=== PATIENT | female | born 1945 | race Caucasian/White ===

== ENCOUNTER 2022-02-10 10:46 | Day surgery (SDC) | payer MEDICARE, OTHER ==
[~2022-02-10] VITALS: Ht 167.6 cm; Wt 106.0 kg
[2022-02-10 11:00] VITALS: BP 141/93
[2022-02-10] MEDS ORDERED: LORazepam 0.5 MG tablet PO PRN (11:00)
[2022-02-10] MEDS ORDERED: diphenhydrAMINE 25mg capsule PO PRN (11:00)
[2022-02-10] MEDS ORDERED: normal saline 1,000 ML IV SCH (11:00)
[2022-02-10] MEDS ORDERED: POTA-192 PO (11:20)
[2022-02-10] MEDS ORDERED: SIMV-42 PO (11:20)
[2022-02-10] MEDS ORDERED: VALS160T30 PO (11:20)
[2022-02-10] MEDS ORDERED: DABI150C PO (11:20)
[2022-02-10] MEDS ORDERED: PANT40TA54 PO (11:20)
[2022-02-10] MEDS ORDERED: FURO40TA4 PO (11:20)
[2022-02-10] MEDS ORDERED: METO-411 PO (11:20)
[2022-02-10] MEDS ORDERED: DILT120T PO (11:20)
[2022-02-10] MEDS ORDERED: MODA200T48 PO (11:22)
[2022-02-10] MEDS ORDERED: CHOL200074 PO (11:29)
[2022-02-10] MEDS ORDERED: CALC-1215 PO (11:29)
[2022-02-10] MEDS ORDERED: GLUC1TAB21 PO (11:29)
[2022-02-10] MEDS ORDERED: Vitamin B12 PO (11:29)
[2022-02-10] MEDS ORDERED: OMEG-79 PO (11:29)
[2022-02-10] MEDS ORDERED: ASCO-139 PO (11:29)
[2022-02-10] MEDS ORDERED: Super B Complex PO (11:29)
[2022-02-10] MEDS ORDERED: fentaNYL/PF 50MCG/1 ML 2ML syringe ONE (12:32)
[2022-02-10] MEDS ORDERED: iohexol 350 MG/ML 50ML vial IV ONE (12:32)
[2022-02-10] MEDS ORDERED: verapamil 2.5 mg/ml inj IV ONE (12:32)
[2022-02-10] MEDS ORDERED: midazolam 1 mg/ML 2ml injection ONE (12:32)
[2022-02-10] MEDS ORDERED: heparin 1,000unit/ml 10ml vial 0 ML ONE (12:32)
[2022-02-10] MEDS ORDERED: nitroGLYCERIN-Tridil 50MG/D5W 0 ML IV ONE (12:33)
[2022-02-10] MEDS ORDERED: iohexol 350MG/ML 100ml bottle IV ONE (12:33)
[2022-02-10] MEDS ORDERED: LIDOCAINE 1% w/preservative (10 MG/ML) inj. 10mL VIAL ONE (12:43)
[2022-02-10 14:32] LABS: ISTAT Hct MIX 39 %PCV (35-48); ISTAT O2 SATURATION MIX VENOUS 69 % (60-80); ISTAT SOURCE VEN
[2022-02-10 15:05] VITALS: BP 105/54
[2022-02-10 15:15] VITALS: BP 113/52
[2022-02-10 15:30] VITALS: BP 108/51
[2022-02-10 15:45] VITALS: BP 108/58
[2022-02-10 16:15] VITALS: BP 112/57
== END 2022-02-10 16:35 | disposition home or self-care (01) ==
LOC: SSTAY O 10:46
PROVIDERS: ATTEND Internal Medicine Interventional Cardiology
DX: R06.02 Shortness of breath (principal); I27.0 Primary pulmonary hypertension; G47.33 Obstructive sleep apnea (adult) (pediatric); I11.0 Hypertensive heart disease with heart failure; I50.9 Heart failure, unspecified; I48.0 Paroxysmal atrial fibrillation; G47.419 Narcolepsy without cataplexy; K21.9 Gastro-esophageal reflux disease without esophagitis; I36.1 Nonrheumatic tricuspid (valve) insufficiency; Z79.899 Other long term (current) drug therapy
CPT/HCPCS: 82803; 85014; 93005; 93451; 99152; 99153; C1751; C1894; J1644; J2250; J3010; J7030; Q0163; A4620; A6258; J3490; Q9967

== ENCOUNTER 2025-05-31 07:54 | Inpatient (IN) | payer MEDICARE, OTHER ==
--- NOTE | 2025-05-22 13:57 | ELECTROCARDIOGRAPH REPORT ---
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 SHERRI Orozco Measurements Intervals [place] Rate: 93 P: 76 IN: 52 QRS: 4 QRSD: 87 T: 266 QT: 268 QTc: 334 Interpretive Statements Sinus rhythm Short IN interval Abnormal R-wave progression, early transition Repol abnrm suggests ischemia, diffuse leads Electronically Signed On 05-22-2025 17:27:[address] SHERRI Orozco Please click the below link to view image of tracing.
--- NOTE | 2025-05-22 14:29 | RADIOLOGY REPORT ---
DI CHEST,TWO VIEWS CLINICAL HISTORY: PREOP COMPARISON: None TECHNIQUE: Frontal and lateral view of the chest was obtained FINDINGS: Lines and Tubes: None Lungs: No focal consolidation. Eventration of bilateral hemidiaphragm. Pleura: No effusion. No pneumothorax. Cardiomediastinal contours:Heart size is within normal limits with mild to moderate atherosclerotic c alcification and uncoiling of the aorta. Bones: No acute osseous abnormality. IMPRESSION: No acute cardiopulmonary disease.
[2025-05-22 14:36] LABS: LEUKOCYTE ESTERASE ,URINE NEGATIVE (Neg); MEAN PLATELET VOLUME 9.2 FL (7.4-10.4); NITRITES, URINE NEGATIVE (Neg); OCCULT BLOOD,URINE NEGATIVE (Neg); PRE OP HEMATOCRIT 43.9 % (35.0-45.0); PRE OP HEMOGLOBIN 14.8 g/dL (12.0-16.0); PRE OP PLATELET COUNT 240 X10'3 (140-440); PRE OP WHITE BLOOD COUNT 8.2 10'3 (4.8-10.8); RED CELL DISTRIBUTION WIDTH 15.2 % (11.5-14.5)
[2025-05-22 14:41] LABS: UA COLLECTION TYPE CLN CATCH MIDSTREAM
[2025-05-22 14:45] LABS: PRE OP INR 1.1 INR; PRE OP PARTIAL THROMB. TIME 27.0 SECONDS (22-32); PRE OP PROTIME 10.9 SECONDS (9.0-12.0)
[2025-05-22 14:46] LABS: CREATININE 0.83 MG/DL (0.40-0.90); PRE OP ALT 39 U/L (30-65); PRE OP ANION GAP 6 (8-16); PRE OP AST 31 U/L (10-37); PRE OP BILIRUB, TOTAL 0.8 MG/DL (0.0-1.0); PRE OP GLUCOSE 110 MG/DL (70-104); PRE OP POTASSIUM 4.1 MMOL/L (3.4-5.1); PRE OP SODIUM 140 MMOL/L (135-145); TOTAL CARBON DIOXIDE 27.5 MMOL/L (24-32); eGFR 66 ML/MIN
[~2025-05-31] VITALS: Ht 167.6 cm; Wt 102.6 kg
[2025-05-31] VITALS (18 sets, daily range): BP systolic 118–149; BP diastolic 68–91; PULSE 78–98; RESP 14–20; TEMP 97.2–98; O2SAT 91–99
[2025-05-31] MEDS: DOCUMENT DATE & TIME OF BETA-BLOCKER PO ONE (05:30)
[2025-05-31] MEDS: ceFAZolin 2gm/dext,iso 50mL 50 ML IV ONE (05:30)
[~2025-05-31 07:54] MED LIST: APIX5TAB3 PO; ASCO-139 PO; ATOR-429 PO; CALC-1215 PO; CHOL200074 PO; CYAN-116 PO; FURO20TA4 PO; GLUC1TAB21 PO; METF-1203 PO; METO100T14 PO; MODA200T48 PO; OMEG-79 PO; PANT40TA54 PO; Super B Complex PO; VALS80TA32 PO; ondansetron/PF 4mg/2ml inj IV PRN
[2025-05-31] MEDS: ringers solution, lacted 1,000 ML IV SCH ×2 (08:50→10:00)
[2025-05-31] MEDS: VANCOMYCIN/H2O 1.5g/300mL PB 300 ML IV ONE (08:51)
[2025-05-31] MEDS ORDERED: labetalol 20mg/4ml (5mg/ml) syringe IV PRN ×2 (10:00→11:20)
[2025-05-31] MEDS ORDERED: morphine 4 MG/ML inj SYRINge IV PRN (10:00)
[2025-05-31] MEDS ORDERED: hydrALAZINE 20mg/ml inj. IV PRN ×2 (10:00→11:20)
[2025-05-31] MEDS ORDERED: ondansetron/PF 4mg/2ml inj IV PRN ×2 (10:00→11:20)
[2025-05-31] MEDS ORDERED: HYDROmorphone/PF 0.2 MG/ML SYRINGE IV PRN ×2 (10:00)
[2025-05-31] MEDS ORDERED: fentaNYL/PF 50MCG/1 ML 2ML syringe ONE (10:23)
[2025-05-31] MEDS ORDERED: propofol inj 20 ML IV ONE (10:25)
[2025-05-31] MEDS ORDERED: rocuronium 10mg/ml inj IV ONE (10:26)
[2025-05-31] MEDS ORDERED: heparin 1,000unit/ml 10ml vial 10 ML ONE (10:34)
[2025-05-31] MEDS ORDERED: potassium Cl 20mEq/100mL bag 100 ML IV PRN (11:20)
[2025-05-31] MEDS ORDERED: potassium Cl 40MEQ/270ML bag 250 ML IV PRN (11:20)
[2025-05-31] MEDS ORDERED: magnesium sulf-water 2g/50mL 50 ML IV PRN (11:20)
[2025-05-31] MEDS ORDERED: ALPRAZolam 0.25mg tablet PO PRN (11:20)
[2025-05-31] MEDS ORDERED: HYDROcodone/acetaminophen 5mg/325mg tablet PO PRN (11:20)
[2025-05-31] MEDS ORDERED: dextrose 50%-water 50ml dispensing syringe IV PRN ×2 (11:20)
[2025-05-31] MEDS ORDERED: potassium CL 10mEq/100ml bag 100 ML IV PRN (11:20)
[2025-05-31] MEDS ORDERED: docusate sod 100mg capsule PO PRN (11:20)
[2025-05-31] MEDS ORDERED: pantoprazole 40mg Tablet.DR PO PRN (11:20)
[2025-05-31] MEDS ORDERED: DEXTROSE 15 GM of carb/4 tabs (each vial/BOTTLE has 4 tablets) PO PRN ×2 (11:20)
[2025-05-31] MEDS ORDERED: glucagon, human recombinant 1mg kit SUBCUT PRN (11:20)
[2025-05-31] MEDS ORDERED: potassium Cl 40MEQ/1/2NS 520ml 520 ML IV PRN (11:20)
[2025-05-31] MEDS ORDERED: magnesium sulf-water 4G/100mL 100 ML IV PRN (11:20)
--- NOTE | 2025-05-31 11:23 | OPERATIVE REPORT ---
Operative Report Providers to CC CC: CHARLES GRANADO MD ~ Date of Procedure: May 31, 2025 Pre-Operative Diagnosis: Atrial Fibrillation with high bleeding risk Post-Operative Diagnosis SAME as PRE-Op Procedure Performed 1. Transseptal Puncture via OMARI guidance 2. Left Atrial Appendogram 3. Left Atrial Appendage closure with 27mm Watchman FLX Pro Pro Device 4. Ultrasound guided access, right Femoral Vein Surgeon: Apple Granado MD Quality Assurance Monitor Body n/a Anesthesiologist: Cristopher Angel Type of Anesthesia: General Findings: Left Atrial appendage amenable to percutaneous closure. Complications None Prosthetics\\Implants used: 27mm Watchman Flx Pro Estimated Blood Loss: Minimal Specimen Removed: None Description of Procedure: The patient was brought to the laboratory technologist in a fasting state. They underwent General anesthesia. Ultrasound was used to guide access to the right femoral vein where two nilesh-cross Perclose devices were placed and upsized to an 8Fr sheath. Heparin was given to maintain an ACT over 250 seconds. An 0.035" wire was advanced into the SVC. The 8Fr sheath was then removed and the 8.5Fr VersaCross Transseptal sheath was advanced into the SVC. The RF wire was then advanced to the tip of the sheath/dilator. Using OMARI guidance, appropriate position of the tip of the sheath was determined and using an energized wire tip, advanced into the left atrium. The sheath and dilator were then advanced over the wire into the left atrium. Over the wire, the Versacross sheath was removed and exchanged for the Watchman Sheath. The wire and dilator were then removed and exchanged for a 5Fr pigtail catheter which was placed into the left atrial appendage and an appendogram performed in the THOMPSON-Caudal position. There, ACT was confirmed to be therapeutic. The Watchman sheath was then advanced into the left atrial appendage over the pigtail catheter. Once appropriate position was determined, the pigtail was removed, the 27mm Watchman FLX device and delivery system were advanced into the tip of the sheath. The delivery system was advanced until an appropriate FLX ball was formed. The guide was then retracted and the Watchman device was unsheathed will full deployment in the appendage. Next, PASS criteria was performed confirming adequate positioning and anchoring(using a tug-test), sizing showing adequate compression, and no significant leak around the device. Another Appendogram was performed confirming placement. The device was then released from the delivery system. The guide and delivery system were removed and the perclose tied as well as the [id number] suture, ensuring adequate hemostasis. Mean LA Presssure: 14mmHg Contrast: 25cc ACT: 256s Device Compression: 29% RESULTS: 1. Successful Left-Atrial Appendage closure with a 31mm Watchman FLX Pro device 2. Right Femoral Vein access, closed with Perclose x 2 and [id number] suture 3. Resume Eliquis 5mg BID x 45days with repeat imaging at that time. If sealed without evidence of device related thrombosis, can stop OAC and start ASA 81mg QD indefinitely, plavix 75mg QD x 6 months. 4. DM: RISS They will be watched in the recovery area until stable, then transferred to the telemetry at that time. APPLE GRANADO MD May 31, 2025 11:23
--- NOTE | 2025-05-31 11:29 | ELECTROCARDIOGRAPH REPORT ---
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 SHERRI Orozco Measurements Intervals [place] Rate: 97 P: 0 GA: 138 QRS: 14 QRSD: 88 T: 68 QT: 373 QTc: 474 Interpretive Statements Sinus rhythm Abnormal R-wave progression, early transition Borderline repolarization abnormality Electronically Signed On 06-01-2025 20:19:[address] SHERRI Orozco Please click the below link to view image of tracing.
[2025-05-31] MEDS: INSULIN LISPRO 100 UNIT/ML INSULN.PEN MULTI-DOSE SQ SCH ×2 (12:00)
[2025-05-31] MEDS: normal saline 1000ml 1,000 ML IV SCH (13:45)
[2025-05-31] MEDS: ceFAZolin 1GM/D5W- ADD-VANTAGE 50 ML IV SCH (16:47)
[2025-05-31] MEDS: sod chloride 0.9% 10ml flush syringe IV SCH (16:47)
[2025-05-31] MEDS: vancomycin/NS 1 GM ADD-VANTAGE 250 ML IV SCH (21:39)
[2025-05-31] MEDS: OMEGA-3/DHA/EPA/FISH OIL 1 EACH CAPSULE.DR PO SCH (21:39)
[2025-05-31] MEDS: potassium Cl 20 mEq SR tablet PO PRN (22:49)
[2025-06-01 02:00] VITALS: BP 131/86; PULSE 103; RESP 18; TEMP 97.9; O2SAT 97
[2025-06-01 06:00] VITALS: BP 130/82; PULSE 103; RESP 19; TEMP 97.4; O2SAT 96
[2025-06-01 06:55] LABS: MEAN PLATELET VOLUME 8.9 FL (7.4-10.4); RED CELL DISTRIBUTION WIDTH 15.0 % (11.5-14.5)
[2025-06-01 07:11] LABS: INR 1.0 INR
[2025-06-01 07:39] LABS: CREATININE 0.62 MG/DL (0.40-0.90); PRO BRAIN NATRIURETIC PEPTIDE 1434 PG/ML (0-450); TOTAL CARBON DIOXIDE 28.6 MMOL/L (24-32); eCRCL 65 ML/MIN; eGFR > 90 ML/MIN
[2025-06-01 08:00] VITALS: RESP 18; O2SAT 97
--- NOTE | 2025-06-01 08:03 | ELECTROCARDIOGRAPH REPORT ---
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 SHERRI Orozco Measurements Intervals [place] Rate: 104 P: 68 VT: 151 QRS: 7 QRSD: 91 T: 23 QT: 378 QTc: 498 Interpretive Statements Sinus tachycardia Abnormal R-wave progression, early transition Borderline repolarization abnormality Borderline prolonged QT interval Electronically Signed On 06-01-2025 20:21:[address] SHERRI Orozco Please click the below link to view image of tracing.
--- NOTE | 2025-06-01 08:27 | RADIOLOGY REPORT ---
CHEST RADIOGRAPH Indication: s/p Watchman Technique: Single frontal view of the chest was obtained Comparison: DI CHEST TWO VIEWS on DOS: 05/22/25 FINDINGS: Lines and Tubes: None Lungs: No focal consolidation. Pleura: No effusion. No pneumothorax. Cardiomediastinal contours: Unremarkable Bones: No acute osseous abnormality. IMPRESSION: 1. No acute cardiopulmonary disease.
[2025-06-01] MEDS: cholecalciferol (vitamin D3) 1,000 unit (25mcg) tablet PO SCH (08:44)
[2025-06-01] MEDS: calcium carbonate/vitamin D3 tablet PO SCH (08:45)
[2025-06-01] MEDS: cyanocobalamin 500mcg tablet PO SCH (08:45)
[2025-06-01] MEDS: pantoprazole 40mg Tablet.DR PO SCH (08:45)
--- NOTE | 2025-06-01 09:23 | CARDIOLOGY REPORT ---
APPROVED REPORT EXAM: Focused, limited intraprocedural transesophageal 2D, spectral and color flow Doppler echocardio gram during WATCHMAN deployment. 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 Overall systolic function appears normal. LVEF is 55-60%. RIGHT VENTRICLE RV appears mildly dilated with normal contractility. ATRIA LA appears severely dilated. Broccoli sock shaped appendage without thrombus detected, although thick smoke/pre-thrombotic appearance detected throughout. Left upper pulmonary vein identified. Intact in teratrial septum. Width / length averages are: 0degr - 22 x 27 mm; 45degr - 15 x 24 mm; 90degr - 17 x 26 mm; 135degr 16 x 25 mm. Loop 27: Septal tenting visualized with RF atrial septal puncture perfor med. Loop 29: Wire in LA. Pigtail advanced to tip of appendage. LA pressure is measured at: 14 mmHG. Loop 30: Appendagram performed. Loop 32: Flex ball deployed. 27 mm Watchman FLX device, PASS criteri a attempted, successfully. Loop 34: Successful "TUG" test performed. PASS reassessed. Optimal pernell naseem obtained - shoulder to shoulder measurement is: 19.0 mm. Loop : Device released. Patent interatr ial septum with small residual left to right shunt (s/p transseptal puncture). Successfully occluded left atrial appendage with Watchman device well positioned without thrombus. No residual flow around device detected. No pericardial effusion post-implant. PERICARDIUM There is no pericardial effusion, anterior epicardial pad present. CONCLUSION LV appears normal in size and thickness. Overall systolic function appears normal. LVEF is 55-60%. RV appears mildly dilated with normal contractility. LA appears severely dilated. Broccoli sock shaped appendage without thrombus detected, although thick smoke/pre-thrombotic appearance detected througho ut. Left upper pulmonary vein identified. Intact interatrial septum. Width / length averages are: 0de gr - 22 x 27 mm; 45degr - 15 x 24 mm; 90degr - 17 x 26 mm; 135degr 16 x 25 mm. Loop 27: Septal tenti ng visualized with RF atrial septal puncture performed. Loop 29: Wire in LA. Pigtail advanced to tip of appendage. LA pressure is measured at: 14 mmHG. Loop 30: Appendagram performed. Loop 32: Flex bal l deployed. 27 mm Watchman FLX device, PASS criteria attempted, successfully. Loop 34: Successful "TU G" test performed. PASS reassessed. Optimal compression obtained - shoulder to shoulder measurement i s: 19.0 mm. Loop : Device released. Patent interatrial septum with small residual left to right shunt (s/p transseptal puncture). Successfully occluded left atrial appendage with Watchman device well po sitioned without thrombus. No residual flow around device detected. No pericardial effusion post-impl ant. There is no pericardial effusion, anterior epicardial pad present. Conclusion LV appears normal in size and thickness. Overall systolic function appears normal. LVEF is 55-60%. RV appears mildly dilated with normal contractility. LA appears severely dilated. Broccoli sock shaped appendage without thrombus detected, although thick smoke/pre-thrombotic appearance detected throughout. Left upper pulmonary vein identified. Intact in teratrial septum. Width / length averages are: 0degr - 22 x 27 mm; 45degr - 15 x 24 mm; 90degr - 17 x 26 mm; 135degr 16 x 25 mm. Loop 27: Septal tenting visualized with RF atrial septal puncture pe rformed. Loop 29: Wire in LA. Pigtail advanced to tip of appendage. LA pressure is measured at: 14 mmHG. Loop 30: Appendagram performed. Loop 32: Flex ball deployed. 27 mm Watchman FLX device, PA SS criteria attempted, successfully. Loop 34: Successful "TUG" test performed. PASS reassessed. Optim al compression obtained - shoulder to shoulder measurement is: 19.0 mm. Loop : Device released. Pat ent interatrial septum with small residual left to right shunt (s/p transseptal puncture). Successfu lly occluded left atrial appendage with Watchman device well positioned without thrombus. No residua l flow around device detected. No pericardial effusion post-implant. There is no pericardial effusion, anterior epicardial pad present.
[2025-06-01 11:00] VITALS: BP 132/72; PULSE 105; RESP 19; TEMP 97.5; O2SAT 95
[2025-06-01] MEDS: modafinil 100mg tablet PO SCH (12:00)
--- NOTE | 2025-06-01 17:01 | DISCHARGE SUMMARY ---
Discharge Summary Providers to CC CC: CHARLES ALEJANDRO MD ~ Discharge Summary Admission Diagnosis: Atrial Fibrillation with high bleeding risk Hospital Course DATE OF ADMISSION: 05/31/2025 DATE OF DISCHARGE: 06/01/2025 Discharge Diagnosis\Comment: Status post Left atrial appendage closure Operations\Procedures: 1. Transseptal Puncture via OMARI guidance 2. Left Atrial Appendogram 3. Left Atrial Appendage closure with 27mm Watchman FLX Pro Pro Device 4. Ultrasound guided access, right Femoral Vein Consultants: None Complications: None Condition on DC: Stable Continued Medications: Apixaban (Eliquis) 5 Mg Tablet 1 TAB PO Q12H for 30 Days, #60 TAB 0 Refills Ascorbic Acid (Vitamin C) 1,000 Mg Tablet 1 TAB PO DAILY, TAB 0 Refills DIRECTED Atorvastatin Calcium* (Lipitor*) 80 Mg Tablet 1 TAB PO DAILY for 30 Days, #30 TAB Calcium Carbonate/Vitamin D3 (Calcium + D 600 Mg Tablet) 1 Each Tablet 1 EACH PO DAILY, TAB Cholecalciferol (Vitamin D3) (Vitamin D3) 50 Mcg Capsule 2 CAP PO DAILY, CAP 0 Refills Cyanocobalamin (Vitamin B-12) (Vitamin B12) 1,000 Mcg Tablet 1 TAB PO DAILY Furosemide (Furosemide) 20 Mg Tablet 1 TAB PO DAILY for 30 Days, #30 TAB 0 Refills Gluc Zhu/Chondro Zhu A/Vit C/Mn (Glucosamine Chondroitin Tab) 1 Each Tablet 1 EACH PO DAILY, TAB Metformin HCl (Metformin HCl) 500 Mg Tablet 1 TAB PO Q12H for 30 Days, #60 TAB Metoprolol Tartrate (Metoprolol Tartrate) 100 Mg Tablet 1 TAB PO Q12H for 30 Days, #60 TAB 0 Refills Modafinil (Modafinil) 200 Mg Tablet 1.5 TAB PO DAILY [place]-3 Fatty Acids/Fish Oil (Fish Oil 1,000 Mg Softgel) 1 Each Capsule 1 CAP PO BID, CAP 0 Refills Pantoprazole Sodium (Pantoprazole Sodium) 40 Mg Tablet.dr 1 TAB PO DAILY [Super B Complex] () 1 TAB PO DAILY Valsartan (Valsartan) 80 Mg Tablet 1 TAB PO DAILY for 30 Days, #30 TAB 0 Refills Discharge Summary: 80yo woman with HTN, HLD, DM, Atrial Fibrillation and high bleeding risk admitted status post left atrial occlusion with 27mm Watchman Flx Pro. Did well overnight without issues. --Resume Eliquis 5mg BID x 45days with repeat imaging at that time. If sealed without evidence of device related thrombosis, can stop OAC and start ASA 81mg QD indefinitely, plavix 75mg QD x 6 months.--Cont Eliquis 5mg BID x 45days with repeat imaging at that time. *Problems/Diagnosis: (1) Atrial fibrillation Total Time Spent on D/C: Up to 30 Minutes Counseling Services Smoking & Tobacco Cessation: N/A APPLE ALEJANDRO MD Jun 01, 2025 17:01
--- NOTE | 2025-06-01 19:03 | CARDIOLOGY REPORT ---
APPROVED REPORT EXAM: Limited 2D, Doppler, and color-flow Echocardiogram. Patient Location: [facility] Heart Rate: 102 bpm Rhythm: Atrial Fibrillation Indications One day Watchman FLX Closure Device follow up 27 mm Watchman FLX Closure Device Voice Over Announcer is Bridgett Granado MD Previous echo05/31/2025 [facility] EF 55-60% ; Intact interatrial septum. LEFT VENTRICLE Normal LV size and wall thickness. Overall systolic function appears normal. LVEF is 55-60%. RIGHT VENTRICLE RV is normal size and function. ATRIA LA is sev dilated. Intact interatrial septum with small L to R shunt s/p transseptal puncture by colo r and spectral Doppler. MITRAL VALVE The mitral valve is normal in structure. Mild regurgitation. TRICUSPID VALVE TV appears structurally normal with mild regurgitation. GREAT VESSELS The IVC is normal in size and collapses >50% with inspiration. PERICARDIUM Normal pericardium. No effusion. Other Information Study Quality: Adequate Conclusion Normal LV size and wall thickness. Overall systolic function appears normal. LVEF is 55-60%. RV is normal size and function. LA is severely dilated. Intact interatrial septum with small L to R shunt s/p transseptal puncture b y color and spectral Doppler. The mitral valve is normal in structure. Mild regurgitation. TV appears structurally normal with mild regurgitation. Normal pericardium. No effusion.
== END 2025-06-01 15:46 | disposition home or self-care (01) | DRG 274 ==
LOC: PAS IN 07:54 → PCU 3S 12:42
PROVIDERS: ADMIT Student in an Organized Health Care Education/Training Program; ATTEND Student in an Organized Health Care Education/Training Program
PROC: B24BZZ4 Ultrasonography of Heart with Aorta, Transesophageal (ICD-10-PCS; 2025-05-31)
PROC: 02L73DK Occlusion of Left Atrial Appendage with Intraluminal Device, Percutaneous Approach (ICD-10-PCS; principal; 2025-05-31 10:18)
DX: I48.91 Unspecified atrial fibrillation (principal); Z00.6 Encounter for examination for normal comparison and control in clinical research program; Z79.01 Long term (current) use of anticoagulants; Z79.899 Other long term (current) drug therapy; Z79.84 Long term (current) use of oral hypoglycemic drugs
CPT/HCPCS: 33340; 36415; 71045; 71046; 76937; 80053; 81003; 82948; 83036; 83735; 83880; 85025; 85347; 85610; 85730; 86885; 86900; 86901; 86920; 87081; 93005; 93308; 93312; 93325; A4615; A4618; A6258; A6449; C1760; C1889; C1893; C1894; G0378; J0690; J1644; J1815; J2704; J3010; J3373; J3375; J3490; J7030; J7040; J7120; Q9967

== ENCOUNTER 2025-07-17 13:58 | Outpatient (CLI) | payer MEDICARE, OTHER ==
[~2025-07-17 13:58] MED LIST changes: -ondansetron/PF 4mg/2ml inj IV PRN
--- NOTE | 2025-07-17 16:21 | RADIOLOGY REPORT ---
CLINICAL HISTORY: CEREBRAL INFARCTION, UNSPECIFIED TECHNIQUE: Routine multiplanar imaging of the brain was performed without gadolinium contrast. COMPARISON: None FINDINGS: There is no abnormal restricted diffusion to suggest acute infarction. There is mild brain volume loss. Scattered T2 hyperintense foci within the white matter both cerebral hemispheres is most compatible with a mild burden of nonspecific chronic small vessel ischemic change. 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 There is a small old right parietal lobe infarct. There is no evidence for acute ischemic changes, mass, mass effect, or extra- axial fluid collection. There is no hydrocephalus or midline shift. The cerebral sulci and subarachnoid cisterns are not effaced. The imaged paranasal sinuses are clear. There has been bilateral cataract extraction. The midline structures, including the corpus callosum, are unremarkable. The intracranial flow voids are maintained. IMPRESSION: No acute intracranial abnormality seen. No evidence for acute infarct. Mild brain volume loss. Mild chronic small vessel ischemic change. 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 Bilateral cataract extraction.
== END 2025-07-17 23:59 | disposition home or self-care (01) ==
LOC: MRI 13:58
PROVIDERS: ATTEND General Practice
DX: I67.82 Cerebral ischemia (principal); I63.9 Cerebral infarction, unspecified
CPT/HCPCS: 70551

== ENCOUNTER 2025-07-19 06:57 | Day surgery (SDC) | payer MEDICARE, OTHER ==
[~2025-07-19] VITALS: Ht 167.6 cm; Wt 100.2 kg
[2025-07-19] MEDS ORDERED: fentaNYL/PF 50MCG/1 ML 2ML syringe IV ONE (07:40)
[2025-07-19] MEDS ORDERED: MIDAZolam 1mg/ml 10ml vial IV ONE (07:40)
[2025-07-19 07:42] VITALS: BP 125/84; PULSE 91; RESP 16; TEMP 97.8; O2SAT 95
[2025-07-19 08:18] LABS: MEAN PLATELET VOLUME 8.8 FL (7.4-10.4); RED CELL DISTRIBUTION WIDTH 15.3 % (11.5-14.5)
[2025-07-19 08:25] LABS: CREATININE 0.77 MG/DL (0.40-0.90); TOTAL CARBON DIOXIDE 29.8 MMOL/L (24-32); eCRCL 53 ML/MIN; eGFR 72 ML/MIN
[2025-07-19] MEDS ORDERED: CETI10TA14 PO (08:28)
[2025-07-19 08:30] VITALS: BP 125/74; PULSE 91; RESP 15; RESP 16; TEMP 97.8; O2SAT 95
[2025-07-19 08:30] LABS: APTT 26 SECONDS (22-32); INR 1.1 INR
[2025-07-19] MEDS ORDERED: fentaNYL/PF 50MCG/1 ML 2ML syringe ONE (09:05)
[2025-07-19] MEDS ORDERED: midazolam 1 mg/ML 2ml injection ONE (09:05)
[2025-07-19 09:37] VITALS: BP 116/76; PULSE 93; RESP 16; O2SAT 93
[2025-07-19 09:45] VITALS: BP 123/77; PULSE 85; RESP 16; O2SAT 95
[2025-07-19] MEDS ORDERED: ASPI81TA52 PO (09:51)
[2025-07-19] MEDS ORDERED: CLOP75TA34 PO (09:51)
[2025-07-19 10:00] VITALS: BP 121/76; PULSE 84; RESP 16; O2SAT 95
[2025-07-19 10:15] VITALS: BP 121/73; PULSE 84; RESP 16; O2SAT 97
--- NOTE | 2025-07-20 19:25 | CARDIOLOGY REPORT ---
APPROVED REPORT EXAM: Focused, limited transesophageal echocardiogram with color flow Doppler. 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 Mild concentric hypertrophy. LVEF is 55-60%. RIGHT VENTRICLE RV is normal size and function. ATRIA Both atria are severely dilated. Intact interatrial septum without shunt s/p transseptal puncture. Left upper pulmonaryvein identified. Successfully occluded left atrial appendage with well visualized Watchman device well positioned without thrombus. No residual flow detected around device in all views. GREAT VESSELS Ascending aorta is normal in size with minimal atherosclerotic debris. PERICARDIUM Normal pericardium. No effusion. CONCLUSION Normal LV size and function. Mild concentric hypertrophy. LVEF is 55-60%. RV is normal size and function. Both atria are severely dilated. Intact interatrial septum without shunt s/p transseptal puncture. Left upper pulmonary vein identified. Successfully occluded left atrial appendage with well visualized Watchman device well positioned without thrombus. No residual flow detected around device in all views. Ascending aorta is normal in size with minimal atherosclerotic debris. Normal pericardium. No effusion. Conclusion Normal LV size and function. Mild concentric hypertrophy. LVEF is 55-60%. RV is normal size and function. Both atria are severely dilated. Intact interatrial septum without shunt s/p transseptal puncture. Left upper pulmonary vein identified. Successfully occluded left atrial appendage with well visualized Watchman device well positioned without thrombus. No residual flow detected around device in all views. Ascending aorta is normal in size with minimal atherosclerotic debris. Normal pericardium. No effusion.
== END 2025-07-19 10:40 | disposition home or self-care (01) ==
LOC: SSTAY O 06:57
PROVIDERS: ATTEND Student in an Organized Health Care Education/Training Program
DX: I48.91 Unspecified atrial fibrillation (principal); I70.0 Atherosclerosis of aorta; I10 Essential (primary) hypertension; E78.00 Pure hypercholesterolemia, unspecified; K21.9 Gastro-esophageal reflux disease without esophagitis; G47.33 Obstructive sleep apnea (adult) (pediatric); G62.9 Polyneuropathy, unspecified; Z86.73 Personal history of transient ischemic attack (TIA), and cerebral infarction without residual deficits; Z79.01 Long term (current) use of anticoagulants; Z79.84 Long term (current) use of oral hypoglycemic drugs; Z79.899 Other long term (current) drug therapy; Z90.49 Acquired absence of other specified parts of digestive tract; Z90.710 Acquired absence of both cervix and uterus; Z90.89 Acquired absence of other organs; Z95.818 Presence of other cardiac implants and grafts; Z98.890 Other specified postprocedural states; Z83.3 Family history of diabetes mellitus; Z82.49 Family history of ischemic heart disease and other diseases of the circulatory system
CPT/HCPCS: 36415; 80048; 82948; 85025; 85610; 85730; 93312; 93325; J2250; J3010; J7030; 99152